=== PATIENT | male | born 1985 | race African-American/Black ===

== ENCOUNTER 2016-04-23 18:13 | Emergency (ER) | payer MEDICAID ==
[~2016-04-23] VITALS: Ht 193 cm; Wt 86.2 kg
[~2016-04-23 18:13] MED LIST: IBUPROFEN600 MG ORAL; NEURONTIN600 MG ORAL; NKM
[2016-04-23 18:35] VITALS: BP 118/73
--- NOTE | 2016-04-23 19:44 | Emergency Room Report ---
History of Present Illness General Chief Complaint: General Complaint Source: Patient Present Illness HPI 30-year-old male presents emergency department complaining of dysuria in addition to milky white penile discharge x3 days with history of unprotected intercourse with him he was diagnosed with gonorrhea and is currently being treated for gonorrhea. Patient states that the last 2 days he has not been drinking water and he was nauseated and believes that he has been dehydrated as he has intermittent dizziness upon standing. Patient denies episodes of vomiting patient denies abdominal pain. he denies hematuria. Denies lesions, rashes or testicular pain. Denies CP, Palpitations, LOC, AMS, dizziness, Changes in Vision, Sensation, paresthesias, or a sudden severe headache. Allergies: Coded Allergies: No Known Allergies (Unverified , 07/29/15) Patient History Past Medical History: see triage record Past Surgical History: none Pertinent Family History: none Immunizations: UTD Reviewed Nursing Documentation: PMH: Agreed, PSxH: Agreed Nursing Documentation-PMH Past Medical History: No Stated History Physical Exam Vital Signs Date Time Temp Pulse Resp B/P Pulse Ox O2 Delivery O2 Flow Rate FiO2 04/23/16 18:30 98.4 99 16 118/73 100 Room Air Sp02 EP Interpretation: reviewed, normal General Appearance: no apparent distress, alert, GCS 15, non-toxic Head: normocephalic, atraumatic Eyes: bilateral eye PERRL, bilateral eye normal inspection ENT: hearing grossly normal, normal pharynx, no angioedema, normal voice, TMs + canals normal, uvula midline, other - dry mucous membranes Neck: full range of motion, supple/symm/no masses Respiratory: chest non-tender, lungs clear, normal breath sounds, speaking full sentences Cardiovascular #1: regular rate, rhythm, no edema, normal capillary refill Cardiovascular #2: 0 carotid (R), 0 carotid (L), 0 radial (R), 2+ radial (R), 0 radial (L), 2+ radial (L), 0 femoral (R), 0 femoral (L), 0 dorsalis pedis (R) , 0 dorsalis pedis (L) Gastrointestinal: normal bowel sounds, non tender, soft, no guarding, no rebound Rectal: deferred Genitourinary: normal inspection, no CVA tenderness, scrotum normal, other - milky white penile d/c noted, no lesions, no rashes, no LAD, no testicular ttp Musculoskeletal: back normal, gait/station normal, normal range of motion, non- tender, no calf tenderness Neurologic: alert, oriented x3, responsive, motor strength/tone normal, sensory intact, speech normal Psychiatric: judgement/insight normal, memory normal, mood/affect normal, no suicidal/homicidal ideation Skin: normal color, no rash, warm/dry, well hydrated Lymphatic: no adenopathy Medical Decision Making PA Attestation Dr. Edmonds is my supervising Physician whom patient management has been discussed with. Diagnostic Impression: Primary Impression: Urethritis Additional Impressions: Exposure to venereal disease Dehydration, mild ER Course Pt. presents to the ED c/o Penile D/C x 3 days with known exposure to venereal disease. Pt. reports nausea, not drinking enough fluids, and dizziness upon standing up too fast. pt. is worried about dehydration. Ddx considered but are not limited to , STI, G & C, trichomonas,urethritis. Vital signs: are WNL, pt. is afebrile H&PE are most consistent with Urethritis, and mild dehydration as pt. has dry mucous membranes. ORDERS: - G & C Urine: Pending ED INTERVENTIONS: -250mg Rocephin IM DISCHARGE: At this time pt. is stable for d/c to home. Will provide printed patient care instructions, and any necessary prescriptions. Care plan and follow up instructions have been discussed with the patient prior to discharge. Last Vital Signs Date Time Temp Pulse Resp B/P Pulse Ox O2 Delivery O2 Flow Rate FiO2 04/23/16 18:35 98.4 84 16 118/73 100 Room Air Disposition: HOME, SELF-CARE Condition: Stable Scripts Doxycycline Hyclate* (VIBRAMYCIN*) 100 Mg Capsule 100 MG ORAL EVERY 12 HOURS for 7 Days, #14 CAP 0 Refills Prov: Chelsea Levy 04/23/16 Patient Instructions: Chlamydia Test, Chlamydia, Male, Gonorrhea Testing Additional Instructions: Take medications as directed. Follow up with PCP in 3-5 days Return sooner to ED if new symptoms occur, or current symptoms become worse. - Please note that this Emergency Department Report was dictated using Asset Mappingcard[employer] inserter technology software, occasionally this can lead to erroneous entry secondary to interpretation by the dictation equipment. Chelsea Levy 1, 2017 19:44
[2016-04-23] MEDS ORDERED: VIBRAMYCIN100 MG ORAL (19:45)
[2016-04-23] MEDS ORDERED: Lidocaine 1% MPF 10mg/ml 5ml ONE (19:55)
[2016-04-23 20:05] VITALS: BP 118/73
== END 2016-04-23 20:05 | disposition home or self-care (01) ==
LOC: EMR 19:16
DX: N34.2 Other urethritis (principal); E86.0 Dehydration; Z20.2 Contact with and (suspected) exposure to infections with a predominantly sexual mode of transmission
CPT/HCPCS: 87491; 87590; 96360; 96372; 99283; J0696; J7040

== ENCOUNTER 2017-10-30 18:42 | Emergency (ER) | payer MEDICAID ==
[~2017-10-30] VITALS: Ht 193 cm; Wt 117.9 kg
[~2017-10-30 18:42] MED LIST changes: +VIBRAMYCIN100 MG ORAL
[2017-10-30 19:00] VITALS: BP 134/80
--- NOTE | 2017-10-30 21:12 | Emergency Room Report ---
History of Present Illness General Chief Complaint: General Complaint Source: Patient Present Illness HPI Mr. Bonds is a healthy 32 yo male who "overdid it" last night. He feels dehydrated from a night of drinking. He desires IV fluid. He has mild lightheadedness. He has been able to ambulate. Denies headache or paralysis. Does not drink daily. Only drinks on occasion. Allergies: Coded Allergies: No Known Allergies (Unverified , 07/29/15) Patient History Past Medical History: none Reviewed Nursing Documentation: PMH: Agreed; PSxH: Agreed Nursing Documentation-PMH Past Medical History: No Stated History Review of Systems Constitutional: Reports: malaise; Denies: fever Gastrointestinal: Denies: abdominal pain Neurological: Denies: headache All Other Systems: negative except mentioned in HPI Physical Exam Vital Signs Date Time Temp Pulse Resp B/P (MAP) Pulse Ox O2 Delivery O2 Flow Rate FiO2 10/30/17 18:57 98.4 118 18 134/80 99 Room Air 98.4 Sp02 EP Interpretation: reviewed, normal General Appearance: no apparent distress, alert, GCS 15, non-toxic Head: normocephalic, atraumatic Eyes: bilateral eye normal inspection ENT: hearing grossly normal, normal pharynx, no angioedema, normal voice Neck: full range of motion, supple/symm/no masses Respiratory: chest non-tender, lungs clear, normal breath sounds, speaking full sentences Cardiovascular #1: regular rate, rhythm, no edema, no gallop, no JVD, no murmur Gastrointestinal: normal bowel sounds, non tender, soft, non-distended, no guarding, no rebound Musculoskeletal: back normal, gait/station normal, normal range of motion, non- tender, calf tenderness Neurologic: alert, oriented x3, responsive, motor strength/tone normal, sensory intact, normal gait, speech normal Psychiatric: judgement/insight normal, memory normal, mood/affect normal, no suicidal/homicidal ideation Skin: normal color, no rash, warm/dry, well hydrated Lymphatic: no adenopathy Medical Decision Making Diagnostic Impression: Primary Impression: Acute dehydration ER Course acute dehydration from alcohol intake, binge drinking. patient feels much better after IVF dc'd home in good improved condition Last Vital Signs Date Time Temp Pulse Resp B/P (MAP) Pulse Ox O2 Delivery O2 Flow Rate FiO2 10/30/17 18:57 98.4 118 18 134/80 99 Room Air 98.4 Disposition: HOME, SELF-CARE Condition: Stable Departure Forms: Return to Work Return to Work in (Days): 1 Patient Instructions: Dehydration, Adult, [id number]-Oxcy Vania Millan MD Oct 30, 2017 21:12
[2017-10-30 21:18] VITALS: BP 116/75
== END 2017-10-30 21:21 | disposition home or self-care (01) ==
LOC: EMR 20:17
DX: E86.0 Dehydration (principal)
CPT/HCPCS: 96360; 99284

== ENCOUNTER 2018-02-24 03:56 | Emergency (ER) | payer MEDICAID, OTHER ==
[~2018-02-24] VITALS: Ht 193 cm; Wt 108.9 kg
--- NOTE | 2018-02-24 04:15 | NUR ---
ED Nurse Note: RECIEVED PT FROM HOME WITH C/O SEVERE HEADACHE SINCE 02/17, STATING HAS BEEN TAKING MEDS BUT HEADACHE WONT GO AWAY, THIS AM HE AWAKENED AND COULD NOT TALK, DENIES FEVERS, DIARRHEA, VOMITING AND HAS MILD DIZZINESS INTERMITTENTLY, PT ASSISTED TO GOWNING AND PLACED ON CARDIAC MONITORING.
--- NOTE | 2018-02-24 04:25 | Emergency Room Report ---
History of Present Illness General Chief Complaint: Headache Source: Patient Present Illness HPI Is a 32-year-old male with no past medical history. He presents with chief complaint of syncope and headache. Said he has been having throbbing headache since February 17. No trauma. It is throbbing in nature diffuse nature. No nausea no vomiting. Tonight he was at his friend house and stood up and felt lightheaded and he said he passed out. He leaned against the wall and slid down. No other injury. Denies any focal deficit. Usually do not get headaches. Allergies: Coded Allergies: No Known Allergies (Unverified , 07/29/15) Patient History Past Medical History: see triage record, old chart reviewed Past Surgical History: none Pertinent Family History: none Social History: Denies: smoking Immunizations: other Reviewed Nursing Documentation: PMH: Agreed; PSxH: Agreed Nursing Documentation-PMH Past Medical History: No Stated History Review of Systems Eye: Denies: eye pain, blurred vision ENT: Denies: ear pain, nose congestion, throat swelling Respiratory: Denies: cough, shortness of breath Cardiovascular: Denies: chest pain, palpitations Gastrointestinal: Denies: abdominal pain, diarrhea, nausea, vomiting Musculoskeletal: Denies: back pain, joint pain Skin: Denies: rash Neurological: Reports: headache; Denies: numbness Endocrine: Denies: increased thirst, increased urine Hematologic/Lymphatic: Denies: easy bruising All Other Systems: negative except mentioned in HPI Physical Exam Vital Signs Date Time Temp Pulse Resp B/P (MAP) Pulse Ox O2 Delivery O2 Flow Rate FiO2 02/24/18 04:00 97.9 70 16 100/57 98 Room Air vitals unremarkable Sp02 EP Interpretation: reviewed, normal General Appearance: well appearing, no apparent distress, alert Head: normocephalic, atraumatic Eyes: bilateral eye PERRL, bilateral eye EOMI ENT: hearing grossly normal, normal pharynx Neck: full range of motion, supple, no meningismus Respiratory: chest non-tender, lungs clear, normal breath sounds Cardiovascular #1: regular rate, rhythm, no murmur Gastrointestinal: normal bowel sounds, non tender, no mass, no organomegaly, no bruit, non-distended Musculoskeletal: back normal, gait/station normal, normal range of motion Psychiatric: mood/affect normal Skin: warm/dry Procedures Critical Care Time Critical Care Time Critical care is mandated in this patient who presented with a large brain mass with edema and midline shift. Patient require my urgent intervention to attenuate the risks of neurological collapse which may lead to cardiovascular collapse and . Critical care time is 35 minutes excluding any reportable procedure. Critical care time included evaluation, multiple reevaluation, looking at old charts, interpreting laboratory and diagnostic data, discussing case with patient and family and consultants, and charting. Medical Decision Making Diagnostic Impression: Primary Impression: Frontal mass of brain Additional Impressions: Headache Qualified Codes: R51 - Headache Syncope Qualified Codes: R55 - Syncope and collapse ER Course Patient presents with headache and unfortunately has a large right frontal mass with surrounding edema and midline shift. His only focal deficit is that he said that he felt unsteady on his feet especially walking up steps. [place] little clumsy. No slurred speech or muscle weakness. Patient given Decadron and Keppra here. This mass is concerning for neoplastic process. There is no evidence of any bleeding. Said pain felt better. I discussed the case with Dr. Ruiz at [facility] who accepted patient for transfer for higher level care. EKG Diagnostic Results Rate: normal Rhythm: NSR ST Segments: no acute changes ASA given to the pt in ED: No Rhythm Strip Diag. Results Rhythm Strip Time: 05:49 EP Interpretation: yes Rate: 60 Rhythm: NSR, no PVC's, no ectopy CT/MRI/US Diagnostic Results CT/MRI/US Diagnostic Results : Imaging Test Ordered: CT head Impression Read by radiologist. 4 cm right frontal region mass with surrounding edema and midline shift. Last Vital Signs Date Time Temp Pulse Resp B/P (MAP) Pulse Ox O2 Delivery O2 Flow Rate FiO2 02/24/18 04:00 97.9 70 16 100/57 98 Room Air Status: improved Disposition: XFER [facility] Condition: Stable Flip Finch MD Feb 24, 2018 04:25
[2018-02-24] MEDS ORDERED: Ketorolac 30mg Inj IV ONE (04:30)
--- NOTE | 2018-02-24 05:11 | Diagnostic Imaging Report ---
EXAM: CT Head Without Intravenous Contrast CLINICAL HISTORY: SYNCOPE TECHNIQUE: Axial computed tomography images of the head/brain without intravenous contrast. CTDI is 70 mGy and DLP is 1435 mGy-cm. One or more of the following dose reduction techniques were used: automated exposure control, adjustment of the mA and/or kV according to patient size, use of iterative reconstruction technique. COMPARISON: No relevant prior studies available. FINDINGS: Brain: 4.0 x 4.0 cm low-density mass lesion in the right frontal region with surrounding edema. There is 1.8 cm right to left midline shift. No acute hemorrhage. Ventricles: 4.0 x 4.0 cm low-density mass lesion in the right frontal region with surrounding edema. There is 1.8 cm right to left midline shift. There is effacement of the right ventricle. Bones/joints: Unremarkable. No acute fracture. Soft tissues: Unremarkable. Sinuses: Unremarkable as visualized. No acute sinusitis. Mastoid air cells: Unremarkable as visualized. No mastoid effusion. IMPRESSION: 4.0 cm mass lesion in the right frontal region with surrounding edema and midline shift. Follow-up MRI of the brain without and with IV contrast is suggested.
[2018-02-24 05:16] LABS: BASOPHILS % (AUTO) 1.1 % (0.0-2.0); EOSINOPHILS % (AUTO) 0.2 % (0.0-3.0); HEMATOCRIT 51.5 % (42.0-52.0); LYMPHOCYTES % (AUTO) 19.7 % (20.0-45.0); MEAN CORPUSCULAR VOLUME 90 FL (80-99); MONOCYTES % (AUTO) 8.9 % (1.0-10.0); NEUTROPHILS % (AUTO) 70.1 % (45.0-75.0); PLATELET COUNT 307 K/UL (150-450); RED BLOOD COUNT 5.74 M/UL (4.70-6.10); RED CELL DISTRIBUTION WIDTH 11.4 % (11.6-14.8); WHITE BLOOD COUNT 8.3 K/UL (4.8-10.8)
[2018-02-24 05:24] LABS: ANION GAP 8 mmol/L (5-15); BLOOD UREA NITROGEN 11 mg/dL (7-18); CALCIUM 9.5 MG/DL (8.5-10.1); CARBON DIOXIDE 29 MMOL/L (21-32); CHLORIDE 98 MMOL/L (98-107); CREATININE 1.5 MG/DL (0.55-1.30); SODIUM 135 MMOL/L (136-145)
--- NOTE | 2018-02-24 05:24 | NUR ---
ED Nurse Note: Face sheet and CT report faxed to [facility].
[2018-02-24] MEDS ORDERED: levETIRAcetam 500mg/NS100ml 100 ML IVPB ONE (05:30)
[2018-02-24] MEDS ORDERED: Dexamethasone 4mg/ml vial IVP ONE (05:30)
[2018-02-24 06:00] VITALS: BP 120/67
--- NOTE | 2018-02-24 06:00 | NUR ---
ED Nurse Note: PT RESTING QUIETLY IN BED, AWAKE AND ALERT, IV SITE INTACT AND PATENT WITH LFUIDS INFUSING, PT STATES PAIN AT 5/10 AFTER MEDS, EFFECTIVE, NO NAUSEA, VOMITING, DIAZZINESS, CP, OR ANY ACUTE CHANGES OR INCREASED DISTRESS, PT TO BE TRANSFERRED FOR HIGHER LEVEL OF CARE, PT IS AWARE, WAITING FOR HOSPITAL TRANSFER INFORMATION, WILL CONTINUE TO CLOSELY MONITOR.
[2018-02-24 06:11] LABS: APPEARANCE,URINE CLEAR; GLUCOSE, URINE (UA) NEGATIVE (NEGATIVE); KETONES,URINE 1+ (NEGATIVE); LEUKOCYTE ESTERASE ,URINE 1+ (NEGATIVE); NITRITE,URINE NEGATIVE (NEGATIVE); PH,URINE 5 (4.5-8.0); PROTEIN,URINE 2+ (NEGATIVE); UROBILINOGEN,URINE 4 MG/DL (0.0-1.0)
[2018-02-24 06:20] LABS: BILIRUBIN, URINE NEGATIVE (NEGATIVE); COLOR,URINE YELLOW
--- NOTE | 2018-02-24 06:35 | NUR ---
ED Nurse Note: pt to be transferred to [facility] for higher level of care, report called to recieving nurse osoriorn at [phone], all pertinent info given along with current v/s and pt status, ambulance eta is 0730, pt quietly resting in bed, no sz activity noted and pt is on sz precautions, side rails padded, also remains on cardiac monitoring, will continue to closely mopnitor while waiting for transport.
[2018-02-24 07:25] VITALS: BP 111/64
--- NOTE | 2018-02-24 07:35 | NUR ---
ED Nurse Note: [facility] rig#[id number] has arrived for pt transport, verbal report along with transfer pqcket given to [place] driver jerome, pt is awake, alert and oriented x 4, ambulated to [facility], iv site intact and patent, denies cp, no sob or labored breathing, has headache at 3/10, pt has all belongings, family at bedside and aware of transfer also, no sz activity or any acute distress noted during pt transport via gurney and ALS transfer.
[2018-02-24 07:43] VITALS: BP 111/64
--- NOTE | 2018-02-24 15:45 | Cardiology Report ---
APPROVED REPORT EKG Measurement Heart [id number] Sinus bradycardia with sinus arrhythmia Nonspecific ST and T wave abnormality Abnormal ECG
== END 2018-02-24 07:45 | disposition short-term general hospital (02) ==
LOC: EMR 04:26
DX: R22.0 Localized swelling, mass and lump, head (principal); R51 Headache; R55 Syncope and collapse; R94.02 Abnormal brain scan
CPT/HCPCS: 36415; 70450; 80048; 80307; 81003; 84484; 85025; 93005; 96361; 96374; 96375; 99291; J1100; J1885; J1953

== ENCOUNTER 2018-03-21 18:05 | Emergency (ER) | payer OTHER ==
[~2018-03-21] VITALS: Ht 193 cm; Wt 115.7 kg
[2018-03-21 18:15] VITALS: BP 108/84
--- NOTE | 2018-03-21 18:15 | NUR ---
ED Nurse Note: PT WALKED IN TO ER TODAY FROM HOME. AOX4. PT STATES HE IS S/P RIGHT FRONTAL LOBE CRANIOTOMY ON 03/11/18. PT HERE TODAY BECAUSE ONE STABLE WAS LEFT IN HIS HEAD ON RIGHT SIDE. PT ALSO C/O HEADACHE, 12/02. PT STATES HE RAN OUT OF HIS POST OP PAIN MEDICATIONS.
--- NOTE | 2018-03-21 18:44 | Emergency Room Report ---
History of Present Illness General Chief Complaint: General Complaint Source: Patient Present Illness HPI 32-year-old male with history of brain tumor recently admitted and done crit craniotomy for removal of the tumor 3 weeks ago here for removal of the chidi on his craniotomy site is also requesting more pain medication. He is rating his 10 without radiation 9 tingling and numbness. Blurred vision or any new injuries. Patient is requesting pain medication via IV. He reports he last saw his surgeon 5 days ago and he removed all the chidi except for one right temporal region. He was also prescribed Percocet on the same day by his surgeon. She was was done on the patient and he last feels Tylenol with Codeine 2 weeks ago. Allergies: Coded Allergies: No Known Allergies (Unverified , 07/29/15) Patient History Past Medical History: see triage record Past Surgical History: unable to obtain Pertinent Family History: none Immunizations: UTD Reviewed Nursing Documentation: PMH: Agreed; PSxH: Agreed Nursing Documentation-PMH Past Medical History: No History, Except For Hx Neurological Problems: Yes - craniotomy for brain tumor Review of Systems All Other Systems: negative except mentioned in HPI Physical Exam Vital Signs Date Time Temp Pulse Resp B/P (MAP) Pulse Ox O2 Delivery O2 Flow Rate FiO2 03/21/18 18:10 98.2 99 18 111/83 98 Room Air Sp02 EP Interpretation: reviewed, normal General Appearance: normal inspection, well appearing, no apparent distress, alert, GCS 15 Head: other - the incision site post craniotomy and one staple in right temporal Eyes: bilateral eye normal inspection, bilateral eye PERRL ENT: normal ENT inspection, normal pharynx Neck: normal inspection, full range of motion, supple Respiratory: normal inspection, lungs clear, no rhonchi Cardiovascular #1: normal inspection, no edema, no murmur Gastrointestinal: normal inspection, soft Rectal: deferred Genitourinary: deferred Musculoskeletal: normal inspection, digits/nails normal, gait/station normal Neurologic: normal inspection, alert, oriented x3, responsive Psychiatric: normal inspection, judgement/insight normal, memory normal, other - drug seeking behavior Skin: normal inspection, normal color, no rash Lymphatic: normal inspection, no adenopathy Medical Decision Making PA Attestation diagnosis and treatment plans were reviewed and discussed with my supervising physician Dr. Potter Diagnostic Impression: Primary Impression: Post-traumatic headache, unspecified, intractable ER Course 32-year-old male with history of brain tumor recently admitted and done crit craniotomy for removal of the tumor 3 weeks ago here for removal of the chidi on his craniotomy site is also requesting more pain medication. He is rating his 10 without radiation 9 tingling and numbness. Blurred vision or any new injuries. Patient is requesting pain medication via IV. He reports he last saw his surgeon 5 days ago and he removed all the chidi except for one right temporal region. He was also prescribed Percocet on the same day by his surgeon. She was was done on the patient and he last feels Tylenol with Codeine 2 weeks ago. Ddx considered but are not limited to headache post trauma, headache post procedure, Vital signs: are WNL, pt. is afebrile H&PE are most consistent with headache post procedure ORDERS: tylenol with codeine #8 for 2 day supplies. ED INTERVENTIONS: None required at this time. DISCHARGE: At this time pt. is stable for d/c to home. Will provide printed patient care instructions, and any necessary prescriptions. Care plan and follow up instructions have been discussed with the patient prior to discharge. . PT has been explained. We cannot remove the staple from his craniotomy and he needs to return to his surgeon. Also a two-day supply of Tylenol with Codeine to give any history follow with his primary care provider for further pain Last Vital Signs Date Time Temp Pulse Resp B/P (MAP) Pulse Ox O2 Delivery O2 Flow Rate FiO2 03/21/18 18:15 98.4 92 18 108/84 98 Room Air Disposition: HOME, SELF-CARE Condition: Stable Scripts Acetaminophen With Codeine (T#3) (TYLENOL WITH CODEINE #3 TABLET) Y Tab 1 TAB ORAL Q4H PRN for For Pain for 2 Days, #8 TAB Prov: Ella Wells 03/21/18 Patient Instructions: General Headache Without Cause, [id number] Additional Instructions: follow-up with the specialist for removal of the chidi as it is not allowed to be done in the ER setting since this postcraniotomy the supply for Tylenol with Codeine only for 2 days is given until you see your specialist for more pain management Ella Wells Mar 21, 2018 18:44
[2018-03-21] MEDS ORDERED: TYLENOL WITH C1 EAC2 ORAL (18:45)
[2018-03-21 18:50] VITALS: BP 110/86
--- NOTE | 2018-03-21 18:52 | NUR ---
ED Nurse Note: PT SITTING PEACEFULLY IN BED IN NAD. AOX4. PRESCRIPTIONS AND DISCHARGE PAPERWORK EXPLAINED TO PT. PT VERBALIZES UNDERSTANDING AND ALL QUESTIONS ANSWERED. PRESCRIPTIONS AND DISCHARGE PAPERWORK GIVEN TO PT AND ID WRISTBAND REMOVED. PT STILL C/O 12/02. AUGUSTINA CRESPO AWARE. PER AUGUSTINA, PT CAN ENVIRONMENTAL EPIDEMIOLOGIST RX FOR PAIN MEDICATIONS AND IS OKAY FOR DISCHARGE. PT WALKED OUT OF ER WITH STEADY GAIT AND ALL BELONGINGS.
== END 2018-03-21 18:53 | disposition home or self-care (01) ==
LOC: EMR 18:50
DX: G44.301 Post-traumatic headache, unspecified, intractable (principal); Z98.890 Other specified postprocedural states
CPT/HCPCS: 99282